=== PATIENT | male | born 1980 | race Two or more races ===

== ENCOUNTER 2018-07-03 06:24 | Emergency (ER) | payer SELFPAY, OTHER ==
[2018-07-03] MEDS: LIDOCAINE 1% (MPF) 30 ML INJ INJ (06:52)
[2018-07-03] MEDS: CLINDAMYCIN 300 MG CAP PO (08:03)
== END 2018-07-03 09:06 | disposition left against medical advice (07) ==
LOC: FTE 06:24
DX: S61.211A Laceration without foreign body of left index finger without damage to nail, initial encounter (principal); F17.210 Nicotine dependence, cigarettes, uncomplicated; W31.82XA Contact with other commercial machinery, initial encounter; Y92.9 Unspecified place or not applicable
CPT/HCPCS: 12001; 99283-25